=== PATIENT | male | born 1930 | race Caucasian/White ===

== ENCOUNTER → 2020-01-01 | Outpatient (CLI) | payer MEDICARE, BC ==
--- NOTE | 2020-01-01 12:17 | US ---
EXAMINATION TYPE: US abdomen complete DATE OF EXAM: 01/01/2020 COMPARISON: 02/28/2015 CLINICAL HISTORY: R94.5 abnormal liver function test. elevated liver enzymes EXAM MEASUREMENTS: Liver Length: 17.4 cm Gallbladder Wall: 0.2 cm CBD: 0.4 cm Spleen: 9.9 cm Right Kidney: 10.2 x 4.6 x 4.9 cm Left Kidney: 10.0 x 5.1 x 5.2 cm *Technical limitations due to overlying bowel content Pancreas: visualized portions appear wnl Liver: hyperechoic areas noted, largest = 1.6 x 1.6 x 1.8cm Gallbladder: possible polyp posterior wall = 0.2cm Evidence for sonographic Leslie's sign: no CBD: limited evaluation Spleen: appears wnl Right Kidney: no evidence of hydronephrosis Left Kidney: hypoechoic area lateral/lower pole = 2.3 x 2.5 x 2.3cm Upper IVC: wnl Abd Aorta: calcifications noted The liver is homogenous. The intrahepatic portion of the IVC and proximal abdominal aorta are within normal limits. There is no evidence of cholelithiasis. Common bile duct is unremarkable. The visu alized portions of the pancreas are homogenous. The spleen is unremarkable. Kidneys are symmetric a nd free of hydronephrosis. IMPRESSION: 1. Hyperechoic hepatic lesions may reflect. 2. Solid mass left kidney has been present since 02/28/2015 CAT scan.
== END | disposition home or self-care (01) ==
LOC: RADUSWWP 10:56
PROVIDERS: ATTEND Family Medicine
DX: N28.89 Other specified disorders of kidney and ureter (principal)
CPT/HCPCS: 76700

== ENCOUNTER 2020-01-22 08:23 | Inpatient (IN) | payer MEDICARE, BC ==
[2020-01-22] MEDS ORDERED: DIPH,PERTUS(ACELL)TETVAC-LF 0.5 ML VIAL IM ONE (08:33)
--- NOTE | 2020-01-22 08:39 | ED ---
General Adult HPI - General Stated complaint: fall, lt chestwall pain Time Seen by Provider: 01/22/20 08:26 Source: patient, EMS, RN notes reviewed Mode of arrival: EMS Limitations: no limitations - History of Present Illness Initial comments: This is an 89-year-old male presents emergency department via EMS chief complaint of a fall. Patient had a fall yesterday in which EMS did do a lift assist on the patient. Patient states that he's been getting around at this hospital states that he's had increasing pain family states that he's had increase in work of breathing. Patient states she's had generalized weakness, denies feeling well.. Patient states it hurts twist and take a deep breath. He does not feel short of breath and no head injury no loss conscious. Patient is not taking blood there is no abdominal pain no dysuria no hematuria. Patient states the pain is. Mild at this point is markedly increased with any palpation over the left side of the ribs. Patient also noted to have a skin tear to the right arm which was wrapped yesterday he is unsure when his last tetanus was. No reported fever. - Related Data Home Medications Medication Instructions Recorded Confirmed Enalapril [Vasotec] 20 mg PO BID 10/27/13 01/22/20 amLODIPine [Norvasc] 5 mg PO DAILY 02/25/15 01/22/20 Metoprolol Succinate (ER) [Toprol 25 mg PO DAILY 01/22/20 01/22/20 Xl] Timolol 0.5% Ophth Soln [Timoptic 1 drop BOTH EYES DAILY 01/22/20 01/22/20 0.5% Ophth Soln] Allergies Allergy/AdvReac Type Severity Reaction Status Date / Time amoxicillin Allergy Diarrhea Verified 01/22/20 10:42 Review of Systems ROS Statement: Those systems with pertinent positive or pertinent negative responses have been documented in the HPI. ROS Other: All systems not noted in ROS Statement are negative. Past Medical History Past Medical History: Hypertension History of Any Multi-Drug Resistant Organisms: None Reported Past Surgical History: No Surgical Hx Reported Past Psychological History: No Psychological Hx Reported Smoking Status: Current some day smoker Past Alcohol Use History: Occasional Past Drug Use History: None Reported General Exam Limitations: no limitations General appearance: alert, in no apparent distress Head exam: Present: atraumatic, normocephalic, normal inspection Eye exam: Present: normal appearance, PERRL, EOMI. Absent: scleral icterus, conjunctival injection, periorbital swelling ENT exam: Present: normal exam, normal oropharynx, mucous membranes moist Neck exam: Present: normal inspection, full ROM. Absent: tenderness, meningismus, lymphadenopathy Respiratory exam: Present: normal lung sounds bilaterally, chest wall tenderness (Moderate left-sided). Absent: respiratory distress, wheezes, rales, rhonchi, stridor Cardiovascular Exam: Present: regular rate, normal rhythm, normal heart sounds. Absent: systolic murmur, diastolic murmur, rubs, gallop, clicks GI/Abdominal exam: Present: soft, normal bowel sounds. Absent: distended, tenderness, guarding, rebound, rigid Extremities exam: Present: full ROM, normal capillary refill. Absent: normal inspection (Skin tear noted to the right forearm no active bleeding no tenderness), tenderness, pedal edema, joint swelling, calf tenderness Back exam: Present: full ROM. Absent: tenderness Neurological exam: Present: alert, oriented X3, reflexes normal. Absent: motor sensory deficit Skin exam: Present: warm, dry, intact, normal color. Absent: rash Course Vital Signs 01/22/20 01/22/20 01/22/20 08:26 10:33 11:00 Temperature 98 F 98.1 F Pulse Rate 100 90 88 Respiratory 18 18 18 Rate Blood Pressure 144/63 125/64 125/64 O2 Sat by Pulse 97 98 100 Oximetry 01/22/20 01/22/20 11:26 12:36 Temperature 98.0 F Pulse Rate 98 92 Respiratory 20 20 Rate Blood Pressure 130/64 144/61 O2 Sat by Pulse 97 95 Oximetry Medical Decision Making - Medical Decision Making 89-year-old male presented for fall, rib pain and difficulty breathing. Patient's x-ray showed concerns for possible colic, pneumonia. I work was ordered shows elevation of LDH, CRP, d-dimer concerns for chronic virus though rapid chronic versus is negative. Patient CT shows evidence of multifocal sclerotic disease concerning for metastatic cancer. Patient has no known history. Patient has lateral 67th rib fracture. No pneumothorax no definite PE. Patient will be admitted for medical evaluation and treatment for concerning cancer. Patient has not been admitted for repeat fracture though will consult pulmonary and anesthesia service for possible rib block - Lab Data Result diagrams: 01/22/20 10:54 01/22/20 10:54 Lab Results 01/22/20 01/22/20 01/22/20 Range/Units 10:54 10:54 10:54 WBC 15.8 H (3.8-10.6) k/uL RBC 4.08 L (4.30-5.90) m/uL Hgb 10.7 L (13.0-17.5) gm/dL Hct 33.6 L (39.0-53.0) % MCV 82.4 D (80.0-100.0) fL MCH 26.1 (25.0-35.0) pg MCHC 31.7 (31.0-37.0) g/dL RDW 18.8 H (11.5-15.5) % Plt Count 392 (150-450) k/uL MPV 6.8 Neutrophils % 83 % Lymphocytes % 7 % Monocytes % 6 % Eosinophils % 0 % Basophils % 0 % Neutrophils # 13.1 H (1.3-7.7) k/uL Lymphocytes # 1.1 (1.0-4.8) k/uL Monocytes # 1.0 (0-1.0) k/uL Eosinophils # 0.0 (0-0.7) k/uL Basophils # 0.0 (0-0.2) k/uL Anisocytosis Slight Microcytosis Slight PT 13.7 H (9.0-12.0) sec INR 1.4 H (<1.2) APTT 26.5 (22.0-30.0) sec D-Dimer 28.43 H (<0.60) mg/L FEU Sodium 130 L (137-145) mmol/L Potassium 4.1 (3.5-5.1) mmol/L Chloride 101 (98-107) mmol/L Carbon Dioxide 24 (22-30) mmol/L Anion Gap 5 mmol/L BUN 15 (9-20) mg/dL Creatinine 0.78 (0.66-1.25) mg/dL Est GFR (CKD-EPI)AfAm >90 (>60 ml/min/1.73 sqM) Est GFR (CKD-EPI)NonAf 81 (>60 ml/min/1.73 sqM) Glucose 149 H (74-99) mg/dL Plasma Lactic Acid Raj (0.7-2.0) mmol/L Calcium 7.7 L (8.4-10.2) mg/dL Magnesium 1.9 (1.6-2.3) mg/dL Total Bilirubin 0.8 (0.2-1.3) mg/dL AST 203 H (17-59) U/L ALT 49 (4-49) U/L Alkaline Phosphatase 1623 H (38-126) U/L Lactate Dehydrogenase 2088 H (313-618) U/L Troponin I (0.000-0.034) ng/mL C-Reactive Protein 209.1 H (<10.0) mg/L NT-Pro-B Natriuret Pep pg/mL Total Protein 5.3 L (6.3-8.2) g/dL Albumin 2.5 L (3.5-5.0) g/dL Coronavirus (PCR) (Not Detectd) 01/22/20 01/22/20 01/22/20 Range/Units 10:54 10:54 10:54 WBC (3.8-10.6) k/uL RBC (4.30-5.90) m/uL Hgb (13.0-17.5) gm/dL Hct (39.0-53.0) % MCV (80.0-100.0) fL MCH (25.0-35.0) pg MCHC (31.0-37.0) g/dL RDW (11.5-15.5) % Plt Count (150-450) k/uL MPV Neutrophils % % Lymphocytes % % Monocytes % % Eosinophils % % Basophils % % Neutrophils # (1.3-7.7) k/uL Lymphocytes # (1.0-4.8) k/uL Monocytes # (0-1.0) k/uL Eosinophils # (0-0.7) k/uL Basophils # (0-0.2) k/uL Anisocytosis Microcytosis PT (9.0-12.0) sec INR (<1.2) APTT (22.0-30.0) sec D-Dimer (<0.60) mg/L FEU Sodium (137-145) mmol/L Potassium (3.5-5.1) mmol/L Chloride (98-107) mmol/L Carbon Dioxide (22-30) mmol/L Anion Gap mmol/L BUN (9-20) mg/dL Creatinine (0.66-1.25) mg/dL Est GFR (CKD-EPI)AfAm (>60 ml/min/1.73 sqM) Est GFR (CKD-EPI)NonAf (>60 ml/min/1.73 sqM) Glucose (74-99) mg/dL Plasma Lactic Acid Raj 1.4 (0.7-2.0) mmol/L Calcium (8.4-10.2) mg/dL Magnesium (1.6-2.3) mg/dL Total Bilirubin (0.2-1.3) mg/dL AST (17-59) U/L ALT (4-49) U/L Alkaline Phosphatase (38-126) U/L Lactate Dehydrogenase (313-618) U/L Troponin I 0.012 (0.000-0.034) ng/mL C-Reactive Protein (<10.0) mg/L NT-Pro-B Natriuret Pep pg/mL Total Protein (6.3-8.2) g/dL Albumin (3.5-5.0) g/dL Coronavirus (PCR) Not Detected (Not Detectd) 01/22/20 Range/Units 10:54 WBC (3.8-10.6) k/uL RBC (4.30-5.90) m/uL Hgb (13.0-17.5) gm/dL Hct (39.0-53.0) % MCV (80.0-100.0) fL MCH (25.0-35.0) pg MCHC (31.0-37.0) g/dL RDW (11.5-15.5) % Plt Count (150-450) k/uL MPV Neutrophils % % Lymphocytes % % Monocytes % % Eosinophils % % Basophils % % Neutrophils # (1.3-7.7) k/uL Lymphocytes # (1.0-4.8) k/uL Monocytes # (0-1.0) k/uL Eosinophils # (0-0.7) k/uL Basophils # (0-0.2) k/uL Anisocytosis Microcytosis PT (9.0-12.0) sec INR (<1.2) APTT (22.0-30.0) sec D-Dimer (<0.60) mg/L FEU Sodium (137-145) mmol/L Potassium (3.5-5.1) mmol/L Chloride (98-107) mmol/L Carbon Dioxide (22-30) mmol/L Anion Gap mmol/L BUN (9-20) mg/dL Creatinine (0.66-1.25) mg/dL Est GFR (CKD-EPI)AfAm (>60 ml/min/1.73 sqM) Est GFR (CKD-EPI)NonAf (>60 ml/min/1.73 sqM) Glucose (74-99) mg/dL Plasma Lactic Acid Raj (0.7-2.0) mmol/L Calcium (8.4-10.2) mg/dL Magnesium (1.6-2.3) mg/dL Total Bilirubin (0.2-1.3) mg/dL AST (17-59) U/L ALT (4-49) U/L Alkaline Phosphatase (38-126) U/L Lactate Dehydrogenase (313-618) U/L Troponin I (0.000-0.034) ng/mL C-Reactive Protein (<10.0) mg/L NT-Pro-B Natriuret Pep 1420 pg/mL Total Protein (6.3-8.2) g/dL Albumin (3.5-5.0) g/dL Coronavirus (PCR) (Not Detectd) Disposition Clinical Impression: Fall, Fracture of rib of left side, Metastatic neoplastic disease, Dyspnea, Weakness, Skin tear Disposition: ADMITTED IP TO THIS [facility] Condition: Serious Referrals: Win Garner DO [Primary Care Provider] - 1-2 days Time of Disposition: 13:12
--- NOTE | 2020-01-22 10:38 | XR ---
EXAMINATION TYPE: XR ribs LT w pa chest xray DATE OF EXAM: 01/22/2020 CLINICAL HISTORY: Fall with left-sided pain TECHNIQUE: Single frontal view of the chest is obtained. Frontal and oblique images the left-sided ri bs. COMPARISON: None FINDINGS: The osseous structures are demineralized. Moderate to advanced degenerative change right gl enohumeral joint. Cardiac silhouette size upper limits of normal with atherosclerotic change aortic k nob. Background chronic parenchymal changes bilaterally with areas of increased opacity difficult to exclude without prior comparison. Small to tiny bilateral pleural effusions are suspected. Dedicated images of left-sided ribs show no acute displaced fractures. IMPRESSION: 1. No acute displaced left-sided rib fractures. 2. Chronic parenchymal changes with tiny bilateral pleural effusions, faint areas of acute infiltrate difficult to exclude without prior comparison in both lungs. Correlate clinically to exclude covid 1 9 infection.
[2020-01-22 11:25] LABS: Anisocytosis Slight; Basophils % (A) 0 %; Eosinophils % (A) 0 %; HCT 33.6 % (39.0-53.0); HGB 10.7 gm/dL (13.0-17.5); Lymphocytes # (A) 1.1 k/uL (1.0-4.8); Lymphocytes % (A) 7 %; MCH 26.1 pg (25.0-35.0); MCHC 31.7 g/dL (31.0-37.0); Mean Platelet Volume 6.8; Microcytosis Slight; Monocytes % (A) 6 %; Neutrophils # (A) 13.1 k/uL (1.3-7.7); Neutrophils % (A) 83 %; Platelet Count 392 k/uL (150-450); RBC 4.08 m/uL (4.30-5.90); RDW 18.8 % (11.5-15.5); WBC 15.8 k/uL (3.8-10.6)
[2020-01-22 11:32] LABS: MCV 82.4 fL (80.0-100.0)
[2020-01-22 11:49] LABS: ALT 49 U/L (4-49); AST 203 U/L (17-59); African American GFR (CKD) >90 (>60 ml/min/1.73 sqM); Albumin 2.5 g/dL (3.5-5.0); Anion Gap 5 mmol/L; Blood Urea Nitrogen 15 mg/dL (9-20); Calcium 7.7 mg/dL (8.4-10.2); Carbon Dioxide 24 mmol/L (22-30); Chloride 101 mmol/L (98-107); Glucose 149 mg/dL (74-99); LDH 2088 U/L (313-618); Magnesium 1.9 mg/dL (1.6-2.3); Non-African American GFR(CKD) 81 (>60 ml/min/1.73 sqM); Potassium 4.1 mmol/L (3.5-5.1); Sodium 130 mmol/L (137-145); Total Bilirubin 0.8 mg/dL (0.2-1.3); Total Protein 5.3 g/dL (6.3-8.2)
[2020-01-22 11:51] LABS: INR 1.4 (<1.2); Partial Thromboplastin Time 26.5 sec (22.0-30.0); Prothrombin Time 13.7 sec (9.0-12.0)
[2020-01-22 11:55] LABS: D-Dimer 28.43 mg/L FEU (<0.60)
[2020-01-22 12:02] LABS: Alkaline Phosphatase 1623 U/L (38-126); C Reactive Protein 209.1 mg/L (<10.0)
--- NOTE | 2020-01-22 12:53 | CT ---
EXAMINATION TYPE: CT chest angio for PE DATE OF EXAM: 01/22/2020 COMPARISON: Chest and left-sided rib x-ray earlier today. HISTORY: Left chest wall pain after fall. CT DLP: 359.4 mGycm Automated exposure control for dose reduction was used. CONTRAST: CT Chest for pulmonary embolism performed with with IV Contrast, patient injected with 100 mL of Isov ue 370. FINDINGS: LUNGS: Exam suboptimal inspiration unable to hold breath. Background mild underlying emphysematous ch cindy in the lung apices is seen. There are small bilateral pleural effusions and associated compressi ve atelectasis. No additional suspicious areas of focal consolidation. No pneumothorax seen bilateral ly. MEDIASTINUM: There is suboptimal bolus with heterogeneity, there is no large central pulmonary emboli sm, cannot exclude partial occlusive lobar, segmental, or subsegmental pulmonary emboli. There are en larged pulmonary arteries consistent with underlying pulmonary artery hypertension noted. Adjacent th oracic aorta measures up to 3.5 cm in diameter. There are prominent borderline enlarged right hilar lymph nodes. Trace pericardial effusion is seen. No cardiomegaly. Moderate to severe three-vessel co ronary calcification which is noted marked with underlying coronary artery disease. OTHER: Underlying scoliosis. Loss of normal thoracic curvature with moderate multilevel spurring. Th ere is multifocal diffuse abnormal sclerosis of osseous structures including for reference sternal ma nubrium. Advanced degenerative change right glenohumeral joint. There is callus formation suspicious for subacute or healing lateral rib fractures involving lateral sixth rib image 108 and seventh rib a xial image 106. No acute left-sided rib fractures clearly seen. Entire anterolateral lower ribs not i ncluded. IMPRESSION: 1. Suboptimal study without large central pulmonary embolism. Cannot exclude partial occlusive lobar or segmental and subsegmental pulmonary emboli on this study. 2. Mild underlying emphysematous change. Small to tiny right greater than left bilateral pleural effu sions confirmed. Markedly enlarged pulmonary arteries consistent with underlying pulmonary hypertensi on noted. 3. Subacute or healing left lateral sixth and seventh rib fractures. Multifocal underlying osseous sc lerotic lesions consistent with osseous sclerotic metastatic disease. Clinical correlation advised. C onsider prostate primary.
[2020-01-22] MEDS ORDERED: HYDROcodone/APAP 5-325MG 1 EACH TAB PO PRN (13:13)
[2020-01-22] MEDS ORDERED: NALOXONE 0.4 MG/ML 1 ML VIAL IV PRN (13:13)
[2020-01-22] MEDS ORDERED: ACETAMINOPHEN TAB 325 MG TAB PO PRN (13:13)
[2020-01-22] MEDS: ASCORBIC ACID 500 MG TAB PO SCH (17:22)
[2020-01-22] MEDS: ZINC SULFATE 220 MG CAP PO SCH (17:22)
[2020-01-22] MEDS: CHOLECALCIFEROL 400 UNIT TAB PO SCH (17:23)
[2020-01-22] MEDS: lisinopriL 20 MG TAB PO SCH (21:23)
[2020-01-23] MEDS: METOPROLOL SUCCINATE (ER) 25 MG TAB.ER.24H PO SCH (09:17)
[2020-01-23] MEDS: ZINC SULFATE 220 MG CAP PO SCH (09:18)
[2020-01-23] MEDS: lisinopriL 20 MG TAB PO SCH ×2 (09:18→20:29)
[2020-01-23] MEDS: TIMOLOL 0.5% OPHTH DROPS 5 ML BTL BOTH EYES SCH (09:18)
[2020-01-23] MEDS: amLODIPine 5 MG TAB PO SCH (09:18)
[2020-01-23] MEDS: ASCORBIC ACID 500 MG TAB PO SCH (09:18)
--- NOTE | 2020-01-23 10:30 | P.CONS ---
History of Present Illness - Reason for Consult Consult date: 01/23/20 Concern for metastatic dz bone Requesting physician: Shamar Jacobs - History of Present Illness Mr. Trotter is a pleasant male patient who initially was seen in October [address] 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 Primary site was found on right forehead in September 2018, status post Mohrs procedure on 10/17/2018. Path did reveal vascular invasion and moderately differentiated squamous cell carcinoma. At time of initial consultation it was recommended Mr. Mueller be evaluated by Radiation Oncology as it was felt his risk of recurrence was high. Patient declined further intervention and adjuvant therapy at that time. He has not followed back with us since this time. He now presents to [facility] Emergency via EMS chief complaint of a fall. He admits to increase in difficulty of breathing. Overall he states he has had increased generalized weakness and just hasnt been feeling well lately. Pain over left rib cage, which CT revealed evidenced of subacute 6th/7th fracture. Additionally CTA identifies concern of slcerotic bone lesions consistent with picture of metastatic disease. Secondary to these finding we have been asked to further evaluate. Review of Systems All systems: negative Constitutional: Reports as per HPI Past Medical History Past Medical History: Hypertension History of Any Multi-Drug Resistant Organisms: None Reported Past Surgical History: No Surgical Hx Reported Past Anesthesia/Blood Transfusion Reactions: No Reported Reaction Past Psychological History: No Psychological Hx Reported Smoking Status: Current some day smoker Past Alcohol Use History: Occasional Past Drug Use History: None Reported Medications and Allergies Home Medications Medication Instructions Recorded Confirmed Type Enalapril [Vasotec] 20 mg PO BID 10/27/13 01/22/20 History amLODIPine [Norvasc] 5 mg PO DAILY 02/25/15 01/22/20 History Metoprolol Succinate (ER) [Toprol 25 mg PO DAILY 01/22/20 01/22/20 History Xl] Timolol 0.5% Ophth Soln [Timoptic 1 drop BOTH EYES DAILY 01/22/20 01/22/20 History 0.5% Ophth Soln] Allergies Allergy/AdvReac Type Severity Reaction Status Date / Time amoxicillin Allergy Diarrhea Verified 01/22/20 10:42 Physical Exam Vitals: Vital Signs Temp Pulse Pulse Pulse Resp BP BP 01/23/20 05:42 98.2 F 103 H 24 139/72 01/23/20 02:08 98.8 F 90 22 170/67 01/22/20 22:27 98.1 F 105 H 20 166/71 01/22/20 18:24 98.4 F 104 H 16 161/84 01/22/20 17:51 97.9 F 105 H 20 168/79 01/22/20 15:07 98.3 F 95 18 141/56 01/22/20 13:30 96 20 130/56 01/22/20 12:36 92 20 144/61 01/22/20 11:26 98.0 F 98 20 130/64 01/22/20 11:00 98.1 F 88 18 125/64 01/22/20 10:33 90 18 125/64 Pulse Ox 01/23/20 05:42 97 01/23/20 02:08 94 L 01/22/20 22:27 97 01/22/20 18:24 98 01/22/20 17:51 95 01/22/20 15:07 01/22/20 13:30 96 01/22/20 12:36 95 01/22/20 11:26 97 01/22/20 11:00 100 01/22/20 10:33 98 Intake and Output 01/22/20 01/23/20 01/23/20 22:59 06:59 14:59 Other: Voiding Method Toilet # Voids 2 Weight 83.915 kg - Constitutional General appearance: cooperative, no acute distress - EENT Eyes: EOMI ENT: hard of hearing, NA/AT, normal oropharynx - Neck Neck: normal ROM Results CBC & Chem 7: 01/23/20 10:36 01/22/20 10:54 Labs: Abnormal Lab Results - Last 24 Hours (Table) 01/22/20 01/22/20 01/22/20 Range/Units 10:54 10:54 10:54 WBC 15.8 H (3.8-10.6) k/uL RBC 4.08 L (4.30-5.90) m/uL Hgb 10.7 L (13.0-17.5) gm/dL Hct 33.6 L (39.0-53.0) % RDW 18.8 H (11.5-15.5) % Neutrophils # 13.1 H (1.3-7.7) k/uL PT 13.7 H (9.0-12.0) sec INR 1.4 H (<1.2) D-Dimer 28.43 H (<0.60) mg/L FEU Sodium 130 L (137-145) mmol/L Glucose 149 H (74-99) mg/dL Calcium 7.7 L (8.4-10.2) mg/dL AST 203 H (17-59) U/L Alkaline Phosphatase 1623 H (38-126) U/L Lactate Dehydrogenase 2088 H (313-618) U/L C-Reactive Protein 209.1 H (<10.0) mg/L Total Protein 5.3 L (6.3-8.2) g/dL Albumin 2.5 L (3.5-5.0) g/dL Chest x-ray: report reviewed CT scan - chest: report reviewed Assessment and Plan (1) History of squamous cell carcinoma of skin Narrative/Plan: - Initial Diagnosis in September 2018, status post Mohrs Procedure - There was evidence of vascular invasion at that time and radiation adjuvant treatment was recommended, although patient refused. - Now concern for a metastatic process, unknown if in relation to history of SCC as above or new. Further work-up ordered. Current Visit: Yes Status: Acute Code(s): Z85.828 - PERSONAL HISTORY OF OTHER MALIGNANT NEOPLASM OF SKIN SNOMED Code(s): 645101718 (2) Alkaline phosphatase elevation Narrative/Plan: Also with increased LDH, Patients COVID screen was negative although presenta tion of patient COVID should remain in differentials. - CT Abdomen and Pelvis has been ordered to further assess for metastatic disease. Current Visit: Yes Status: Acute Code(s): R74.8 - ABNORMAL LEVELS OF OTHER SERUM ENZYMES SNOMED Code(s): 728686009 (3) Normocytic anemia Narrative/Plan: - No evidence of history of anemia - Anemia work-up ordered to assess for other causes Current Visit: Yes Status: Acute Code(s): D64.9 - ANEMIA, UNSPECIFIED SNO MED Code(s): 422423517 (4) Fall Narrative/Plan: - Increased overall weakness "recently" Current Visit: Yes Status: Acute Code(s): W19.XXXA - UNSPECIFIED FALL, INIT IAL ENCOUNTER SNOMED Code(s): 0474345 (5) Fracture of rib of left side Narrative/Plan: - Likely secondary to recent fall Current Visit: Yes Status: Acute Code(s): S22.32XA - FRACTURE OF ONE RIB, LEFT SIDE, INIT FOR CLOS FX SNOMED Code(s): 63196534 (6) Hyponatremia Current Visit: Yes Status: Acute Code(s): E87.1 - HYPO-OSMOLALITY AND HYPONATREMIA SNOMED Code(s): 54124729 Plan: Await further imaging and work-up, if area of suspicious in soft tissue would prefer a re-biopsy of non-bone as this will allow for a more definitive diagnosis. Await full anemia work-up Treatment of Respiratory complaints per pulm and primary teams Thank you for allowing us to participate in the care of this patient, will follow Physician Attest: I have completed the full history and physical and agree with above dictation, dictated as a scribe.
[2020-01-23 10:59] LABS: Anisocytosis Slight; Basophils % (A) 0 %; Eosinophils % (A) 0 %; HCT 32.7 % (39.0-53.0); Hypochromasia Slight; Lymphocytes # (A) 0.8 k/uL (1.0-4.8); Lymphocytes % (A) 6 %; MCH 25.5 pg (25.0-35.0); MCHC 30.6 g/dL (31.0-37.0); MCV 83.3 fL (80.0-100.0); Mean Platelet Volume 7.5; Microcytosis Slight; Monocytes # (A) 0.8 k/uL (0-1.0); Monocytes % (A) 6 %; Neutrophils # (A) 11.4 k/uL (1.3-7.7); Neutrophils % (A) 85 %; Platelet Count 386 k/uL (150-450); RBC 3.92 m/uL (4.30-5.90); Reticulocyte % 2.3 % (0.5-2.0); WBC 13.5 k/uL (3.8-10.6)
[2020-01-23 11:20] LABS: ALT 39 U/L (4-49); AST 107 U/L (17-59); African American GFR (CKD) >90 (>60 ml/min/1.73 sqM); Albumin 2.4 g/dL (3.5-5.0); Albumin/Globulin Ratio 0.9; Alkaline Phosphatase 1067 U/L (38-126); Anion Gap 4 mmol/L; Blood Urea Nitrogen 23 mg/dL (9-20); Calcium 7.5 mg/dL (8.4-10.2); Carbon Dioxide 24 mmol/L (22-30); Chloride 104 mmol/L (98-107); Globulin 2.8 g/dL; Glucose 151 mg/dL (74-99); Non-African American GFR(CKD) 81 (>60 ml/min/1.73 sqM); Sodium 132 mmol/L (137-145); Total Bilirubin 0.9 mg/dL (0.2-1.3); Total Protein 5.2 g/dL (6.3-8.2)
[2020-01-23 11:24] LABS: Potassium 4.5 mmol/L (3.5-5.1)
[2020-01-23] MEDS: ENOXAPARIN 40 MG/0.4 ML SYRINGE SQ SCH (12:01)
[2020-01-23] MEDS: CHOLECALCIFEROL 400 UNIT TAB PO SCH (12:01)
[2020-01-23] MEDS: IOPAMIDOL CONTRAST (ORAL USE) VIAL PO PRN ×2 (12:30→13:06)
--- NOTE | 2020-01-23 13:20 | P.HPIM ---
History of Present Illness H&P Date: 01/23/20 Chief Complaint: Status post fall, increasing pain, dyspnea This is an 81-year-old gentleman with past medical history of hypertension ongoing nicotine dependence, vascular invasive squamous cell CA diagnosed in 2019, and multiple other medical issues presented to the ER status post fall with complaints of increasing weakness, pain and shortness of breath. Left rib cage pain. CT reporting possible partial occlusive lobar or segmental and subsegmental pulmonary emboli without large central pulmonary embolism, small bilateral pleural effusions, enlarged pulmonary arteries-pulmonary hypertension, prominent borderline enlarged right hilar lymph nodes, moderate to severe 3 vessel coronary calcification with underlying CAD , underlying scoliosis ,subacute or healing left lateral sixth and seventh rib fractures, multifocal underlying osseous sclerotic lesions consistent with metastatic disease. Hypertensive on admission. Initially maintained O2 sats in the high 90s on room air, currently maintaining O2 sats in the 90s on 2 L nasal cannula. Afebrile, elevated WBC 15.8, 13.5, hemoglobin 10, platelets 386, INR 1.4. Sodium 132 BUN 23, creatinine 0.77 glucose 151 calcium 7.5T bili within normal limits, AST 203 on admission down to 107 alk phos 1623 down to 1067 LDH 2088, troponin negative 1, C reactive protein 209.1 BNP 1420. Coronavirus not detected. Past Medical History Past Medical History: Hypertension History of Any Multi-Drug Resistant Organisms: None Reported Past Surgical History: No Surgical Hx Reported Past Anesthesia/Blood Transfusion Reactions: No Reported Reaction Past Psychological History: No Psychological Hx Reported Smoking Status: Current some day smoker Past Alcohol Use History: Occasional Past Drug Use History: None Reported Medications and Allergies Home Medications Medication Instructions Recorded Confirmed Type Enalapril [Vasotec] 20 mg PO BID 10/27/13 01/22/20 History amLODIPine [Norvasc] 5 mg PO DAILY 02/25/15 01/22/20 History Metoprolol Succinate (ER) [Toprol 25 mg PO DAILY 01/22/20 01/22/20 History Xl] Timolol 0.5% Ophth Soln [Timoptic 1 drop BOTH EYES DAILY 01/22/20 01/22/20 History 0.5% Ophth Soln] Allergies Allergy/AdvReac Type Severity Reaction Status Date / Time amoxicillin Allergy Diarrhea Verified 01/22/20 10:42 Physical Exam Vitals: Vital Signs Temp Pulse Pulse Pulse Resp BP BP 12/02/20 10:00 98.1 F 96 16 134/71 01/23/20 05:42 98.2 F 103 H 24 139/72 01/23/20 02:08 98.8 F 90 22 170/67 01/22/20 22:27 98.1 F 105 H 20 166/71 01/22/20 18:24 98.4 F 104 H 16 161/84 01/22/20 17:51 97.9 F 105 H 20 168/79 01/22/20 15:07 98.3 F 95 18 141/56 01/22/20 13:30 96 20 130/56 01/22/20 12:36 92 20 144/61 01/22/20 11:26 98.0 F 98 20 130/64 Pulse Ox 01/23/20 10:00 100 01/23/20 05:42 97 01/23/20 02:08 94 L 01/22/20 22:27 97 01/22/20 18:24 98 01/22/20 17:51 95 01/22/20 15:07 01/22/20 13:30 96 01/22/20 12:36 95 01/22/20 11:26 97 Intake and Output 01/22/20 01/23/20 01/23/20 22:59 06:59 14:59 Other: Voiding Method Toilet Toilet # Voids 2 Weight 83.915 kg PHYSICAL EXAM: VITAL SIGNS: [As above] GENERAL: Sitting up in chair, unshaven ( not his baseline, usually well kept))hard of hearing, no acute distress HEENT: Conjunctivae normal. eyes normal. NECK: No JVD. No thyroid enlargement. No LNs CARDIOVASCULAR: S1, S2 regular.. No murmur RESPIRATION: Breath sounds diminished in the bases. No rhonchi or crackles. No bronchial breathing. Tender left rib cage. ABDOMEN: Soft, nontender . No guarding. no masses palpable. No ascites, No hepatosplenomegaly.Bowel sounds heard. LEGS: No edema. no swelling PSYCHIATRY: Alert and oriented X3, mood and affect normal. NERVOUS SYSTEM: Cranial N 2-12 grossly normal. Moves all 4 limbs. Diffuse weakness, No focal deficits. Strength and sensation grossly intact.. Skin: no lesions, no rash Results CBC & Chem 7: 01/23/20 10:36 01/23/20 10:36 Labs: Abnormal Lab Results - Last 24 Hours (Table) 01/22/20 01/22/20 01/22/20 Range/Units 10:54 10:54 10:54 WBC 15.8 H (3.8-10.6) k/uL RBC 4.08 L (4.30-5.90) m/uL Hgb 10.7 L (13.0-17.5) gm/dL Hct 33.6 L (39.0-53.0) % MCHC (31.0-37.0) g/dL RDW 18.8 H (11.5-15.5) % Neutrophils # 13.1 H (1.3-7.7) k/uL Lymphocytes # (1.0-4.8) k/uL Retic Count (0.5-2.0) % PT 13.7 H (9.0-12.0) sec INR 1.4 H (<1.2) D-Dimer 28.43 H (<0.60) mg/L FEU Sodium 130 L (137-145) mmol/L Glucose 149 H (74-99) mg/dL Calcium 7.7 L (8.4-10.2) mg/dL AST 203 H (17-59) U/L Alkaline Phosphatase 1623 H (38-126) U/L Lactate Dehydrogenase 2088 H (313-618) U/L C-Reactive Protein 209.1 H (<10.0) mg/L Total Protein 5.3 L (6.3-8.2) g/dL Albumin 2.5 L (3.5-5.0) g/dL 01/23/20 Range/Units 10:36 WBC 13.5 H (3.8-10.6) k/uL RBC 3.92 L (4.30-5.90) m/uL Hgb 10.0 L (13.0-17.5) gm/dL Hct 32.7 L (39.0-53.0) % MCHC 30.6 L (31.0-37.0) g/dL RDW 19.0 H (11.5-15.5) % Neutrophils # 11.4 H (1.3-7.7) k/uL Lymphocytes # 0.8 L (1.0-4.8) k/uL Retic Count 2.3 H (0.5-2.0) % PT (9.0-12.0) sec INR (<1.2) D-Dimer (<0.60) mg/L FEU Sodium (137-145) mmol/L Glucose (74-99) mg/dL Calcium (8.4-10.2) mg/dL AST (17-59) U/L Alkaline Phosphatase (38-126) U/L Lactate Dehydrogenase (313-618) U/L C-Reactive Protein (<10.0) mg/L Total Protein (6.3-8.2) g/dL Albumin (3.5-5.0) g/dL Thrombosis Risk Factor Assmnt - Choose All That Apply Any of the Below Risk Factors Present?: Yes Each Factor Represents 1 point: Obesity (BMI >25) Each Risk Factor Represents 3 Points: Age 75 years or older Thrombosis Risk Factor Assessment Total Risk Factor Score: 4 Thrombosis Risk Factor Assessment Level: Moderate Risk Assessment and Plan Assessment: Increasing generalized weakness, in a patient with history of vascular invasive squamous cell CA diagnosed in 2019. CTA suggestive of osseous sclerotic metastatic disease. Oncology following Status post fall secondary to the above Subacute left 6 and seventh rib fractures secondary to the above Acute hypoxic respiratory failure secondary to the above Elevated inflammatory markers though rapid reporting negative for Covid. Normocytic anemia Leukocytosis Elevated d-dimer, CTA reported possible partial occlusive lobar or segmental and subsegmental pulmonary emboli without large central pulmonary embolism Hyponatremia Elevated alk phos, improving Hypertension Ongoing nicotine dependence. Plan: Continue on current medication regime ,monitoring and symptomatic treatment. Home meds reviewed and resumed accordingly. GI and DVT prophylaxis in place. Pulmonary consult in place, recommendations pending. Oncology consulted. Prognosis guarded given multiple complex medical issues. The impression and plan of care has been dictated as directed. : I performed a history and examination of this patient, discussed the same with the dictator. I agree with the dictator's note ,documented as a scribe. Any additional findings or plans will be noted.
--- NOTE | 2020-01-23 14:44 | NM ---
EXAMINATION TYPE: NM bone scan whole body DATE OF EXAM: 01/23/2020 COMPARISON: CT scan 01/23/2020 HISTORY: Bone metastases Delayed whole-body scanning was performed following the injection of 25.9 mCi Tc 99m MDP. Images acq uired 3.25 hours post injection. FINDINGS: There is diffuse skeletal uptake throughout the rib cage, vertebral column, bilateral femora, pelvis, and multifocal uptake involving the calvarium. Findings are compatible with widespread bony metastas es. IMPRESSION: Diffuse widespread bony metastasis as discussed above.
--- NOTE | 2020-01-23 15:44 | CT ---
EXAMINATION TYPE: CT abdomen pelvis w con DATE OF EXAM: 01/23/2020 COMPARISON: 02/28/2015 HISTORY: 89-year-old male bone mets TECHNIQUE: Contiguous axial scanning of the abdomen and pelvis following administration of 100 ml Iso ana 300 IV contrast. There is scanner air noted by the technologist with 2 minute and [address] DLP: 1230.7 mGycm Automated exposure control for dose reduction was used. FINDINGS: Heart normal size without pericardial effusion. LAD and RCA coronary artery calcifications are presen t. Trace to small bilateral pleural effusions. Calcified granuloma at the medial right base. Acute to subacute fractures redemonstrated left lateral seventh, eighth, ninth ribs. Additional subac gisselle fracture right lateral sixth and seventh ribs. Diffuse osteosclerosis throughout. No focal liver lesion or biliary ductal dilatation. Portal venous system is patent. Gallbladder mildly hydropic measuring 4.6 cm wide without surrounding inflammation. Adrenal glands, spleen, mildly atrophic pancreas show no gross abnormality. Right kidney appears satisfactory. Mildly complex 3.1 cm cyst lateral left kidney shows some discontinuous peripheral calcification, pre viously having measured 2.7 cm 2016 without calcification but with a mildly thickened wall. The fact that this lesion was present back in 2016 suggests a benign etiology. Moderate prostatic calcifications throughout the abdominal aorta and iliac arteries. No dilated small bowel, free fluid, or free air. No mesenteric or retroperitoneal lymphadenopathy. Tiny fatty umbilical hernia. Left-sided colonic diverticulosis, extensive within the sigmoid colon. There is a 3.3 cm long segment of annular thickening and narrowing at the distal sigmoid, axial image 73 and sagittal image 60 whic h warrants direct visualization to exclude underlying neoplasm. Prominent stool ball is present withi n the sigmoid colon just proximally. Trabeculated bladder with a left-sided diverticulum measuring 2.4 cm. Prostate gland measures 4.4 cm. Mild presacral edema is nonspecific. No evident pelvic lymphadenopath y. Patulous right inguinal canal. Bones: Diffuse osteophytes and sclerosis throughout the visualized skeleton as mentioned above. IMPRESSION: 1. LEFT-SIDED COLONIC DIVERTICULOSIS, EXTENSIVE WITHIN THE SIGMOID COLON. THERE IS A 3.3 CM SEGMENT O F ANNULAR THICKENING AND NARROWING OF THE DISTAL SIGMOID. DIRECT VISUALIZATION TO EXCLUDE UNDERLYING NEOPLASM. 2. MARKEDLY TRABECULATED BLADDER WITH A 2.4 CM LEFT-SIDED LATERAL WALL DIVERTICULUM. FINDINGS MAY BE SEEN WITH CHRONIC BLADDER OUTLET OBSTRUCTION. 3. THE PROSTATE GLAND IS ONLY MILDLY ENLARGED AT 4.4 CM WIDE. GIVEN THE KNOWN DIFFUSE OSTEO-BLASTIC M ETASTASES, FURTHER CORRELATION WITH PSA, PROSTATE BIOPSY, AND POSSIBLE PROSTATE ULTRASOUND CAN BE CON SIDERED. 4. GALLBLADDER MILDLY HYDROPIC WITHOUT SURROUNDING INFLAMMATION, LIKELY DUE TO FASTING STATE. 5. PERSISTENT TRACE PLEURAL EFFUSIONS.
[2020-01-23] MEDS: PANTOPRAZOLE 40 MG/10 ML VIAL IVP SCH (17:26)
--- NOTE | 2020-01-23 19:25 | CONS ---
CONSULTATION PULMONARY CRITICAL CARE CONSULTATION: January 23, 2020. REASON FOR CONSULTATION: Chest wall injury status post fall, rib fracture. HISTORY OF PRESENT ILLNESS: This is an 89-year-old gentleman who is a very poor historian. He presented to the emergency department on 01/22/2020 at 8:23 am in the morning. He apparently was brought in by EMS because of a fall. Apparently he fell the day before. He came into the emergency room. In addition, the patient complains of pain and increased difficulty breathing. He had generalized weakness and just not feeling well. Again, very poor historian. He states he did not lose consciousness after falling and did not injure or have any trauma to his head area. The pain that he is experiencing is over the left chest area and left rib area. He also was noted to have a skin tear over the right arm. Anyway, after being evaluated in the emergency department, the patient was admitted to the hospital with a diagnosis of status post fall, rib fractures on the left side, metastatic cancer, weakness, and shortness of breath. CURRENT HOME MEDICATIONS: Include Vasotec, Norvasc, metoprolol, and eyedrops. ALLERGIES: AMOXICILLIN. PAST MEDICAL HISTORY: Hypertension. He also apparently has a history of squamous cell carcinoma initially found on his right forehead area. Apparently there is vascular invasion with this cancer. SURGICAL HISTORY: Apparently unremarkable. SOCIAL HISTORY: Positive for tobacco use. He drinks occasionally. No illicit drug use. There is no family or occupational history noted. ALLERGIES: ALLERGIES ARE AMOXICILLIN. REVIEW OF SYSTEMS: CONSTITUTIONAL weakness. NEUROLOGIC negative. HEENT negative. CARDIOVASCULAR: Left chest pain status post fall. PULMONARY: Shortness of breath. GI negative. negative. RHEUMATOLOGIC negative. IMMUNOLOGIC negative. ENDOCRINOLOGIC negative. DERMATOLOGIC negative. PHYSICAL EXAMINATION: VITAL SIGNS: Current vital signs include temperature 98.1. Heart rate 96, respiratory rate 16, blood pressure 134/71 mean 92, 2 L saturation 100%. Room air saturation 94%- 95%. GENERAL: Appears in no acute distress. There is no audible wheezing, use of accessory muscles or conversational dyspnea. HEENT: Examination is grossly unremarkable. NECK: Supple. Full range of motion. No adenopathy. Neck veins are flat. CARDIOVASCULAR: Examination reveals regular rhythm and rate. Heart rate at 90 beats per minute. S1, S2 normal. Heart sounds distant. No murmur. LUNGS: Reveal clear breath sounds. A few scattered mild crackles. Breath sounds equal bilaterally. No rhonchi. ABDOMEN: Soft. Bowel sounds are heard. EXTREMITIES are intact. No significant edema. No cyanosis or clubbing. SKIN: Without rash. NEUROLOGIC: Examination is difficult to assess. Appears to move all 4 extremities well. LAB DATA: Reviewed. White count 13.5, hemoglobin 10, hematocrit 32.7, platelet count 386,000. PT 13.7, INR 1.4, PTT is 26.5. D-dimer 28.43. Sodium 132, potassium 4.5, chloride 104. CO2 24. Anion gap is 4. BUN and creatinine were 23 and 0.77, glucose 151, calcium 7.5. AST, ALT were 107 and 39 respectively. LDH was 2088, alkaline phosphatase 1067. N-terminal proBNP 1420. Covid testing was negative. Microbiology is currently pending or negative. Chest x-ray along with rib series shows no acute displaced left-sided rib fractures. There is chronic parenchymal change with tiny bilateral pleural effusions. Faint areas of acute infiltrates are difficult to exclude. A CT angiogram showed no evidence of large central pulmonary emboli. There is mild underlying emphysematous changes, small right and left pleural effusions, and increased size pulmonary arteries consistent with pulmonary hypertension. There is also apparently healing left lateral 6th and 7th rib fractures. In addition, there is multifocal underlying osseous sclerotic lesions consistent with metastatic disease. Abdominal and pelvic CT was ordered but not read. Bone scan was ordered but not read. Note by Oncology is appreciated. Current medications are reviewed. He is currently on Tylenol, amlodipine, vitamin C, vitamin D3, Lovenox, [place], lisinopril, metoprolol, Narcan, Protonix, and zinc. He has also got eyedrops. ASSESSMENT: 1. Status post fall with left-sided chest trauma, but no acute rib fracture. 2. History of hypertension. 3. Vascular invasive squamous cell carcinoma, apparently beginning on the right side of the forehead. 4. Anemia. 5. No evidence of pulmonary emboli on CT angiogram. 6. Significantly elevated pro inflammatory markers, although a Covid testing was negative. 7. Very poor historian. PLAN: Will await a bone scan and the CT of the abdomen and pelvis. No additional recommendations are made. Saturations on room air 94 to 95%. On 2 L, she is 100%. No additional recommendations are made. Scans and x-rays, CT scan, are all reviewed. Additional recommendations and suggestions are forthcoming. MMODL / IJN: [id number] /
[2020-01-23 20:21] LABS: Protein, Total 4.8 g/dL (6.2-8.2)
[2020-01-24 01:45] LABS: % Iron Saturation 1.25 (15.00-50.00); Iron 3 ug/dL (65-175); Magnesium 2.1 mg/dL (1.5-2.4); Total Iron Binding Capacity 240 ug/dL (228-460)
[2020-01-24 02:37] LABS: Ferritin 1114.8 ng/mL (22.0-322.0); Folate, Serum 15.8 ng/mL
[2020-01-24 06:03] VITALS: RESP 18
[2020-01-24 07:23] LABS: Anisocytosis Slight; Basophils % (A) 0 %; Eosinophils % (A) 0 %; HCT 30.2 % (39.0-53.0); HGB 9.6 gm/dL (13.0-17.5); Hypochromasia Slight; Lymphocytes # (A) 1.2 k/uL (1.0-4.8); Lymphocytes % (A) 11 %; MCH 26.1 pg (25.0-35.0); MCHC 31.8 g/dL (31.0-37.0); MCV 82.2 fL (80.0-100.0); Mean Platelet Volume 6.9; Microcytosis Slight; Monocytes # (A) 0.8 k/uL (0-1.0); Monocytes % (A) 7 %; Neutrophils # (A) 8.8 k/uL (1.3-7.7); Neutrophils % (A) 78 %; Platelet Count 376 k/uL (150-450); RBC 3.68 m/uL (4.30-5.90); RDW 18.6 % (11.5-15.5); WBC 11.3 k/uL (3.8-10.6)
[2020-01-24] MEDS: PANTOPRAZOLE 40 MG/10 ML VIAL IVP SCH (07:58)
[2020-01-24] MEDS: ENOXAPARIN 40 MG/0.4 ML SYRINGE SQ SCH (07:59)
[2020-01-24] MEDS: METOPROLOL SUCCINATE (ER) 25 MG TAB.ER.24H PO SCH (08:00)
[2020-01-24] MEDS: ZINC SULFATE 220 MG CAP PO SCH (08:00)
[2020-01-24] MEDS: amLODIPine 5 MG TAB PO SCH (08:00)
[2020-01-24] MEDS: CHOLECALCIFEROL 400 UNIT TAB PO SCH (08:00)
[2020-01-24] MEDS: TIMOLOL 0.5% OPHTH DROPS 5 ML BTL BOTH EYES SCH (08:00)
[2020-01-24] MEDS: ASCORBIC ACID 500 MG TAB PO SCH (08:00)
[2020-01-24] MEDS: lisinopriL 20 MG TAB PO SCH (08:00)
[2020-01-24 09:06] LABS: Free Kappa Lt Chain Qnt, Serum 2.51 mg/dL (0.33-1.94)
[2020-01-24 10:12] VITALS: BP 131/66; PULSE 92; TEMP 97.8
--- NOTE | 2020-01-24 11:07 | P.PN ---
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 We are awaiting the return of his PSA, if this has increased, the liklihood of prostate cancer is increased, and if this is the metastatic picture treatment options that will increased quality and quantity of life do exist. Unfortunetly SCC is still in differential and if this is metastatic Squamous cell then hospice at this time is appropriate. If patient is open to options (even non-chemo) for metastatic prostate cancer if this is biopsy proven then to proceed with a biopsy is resonable. If he is not open to this, then further invasive diagnostics would not be needed and hospice involvement is appropriate. At this time we are aaiting the PSA and the patient and families decision on bone biopsy prior to moving forward. Objective - Vital Signs Vital signs: Vital Signs Temp 97.8 F 01/24/20 10:00 Pulse 92 01/24/20 10:00 Resp 18 01/24/20 10:00 BP 131/66 01/24/20 10:00 Pulse Ox 99 01/24/20 10:00 Intake & Output 01/23/20 01/24/20 01/24/20 18:59 06:59 18:59 Other: Voiding Method Toilet Toilet # Voids 5 0 # Bowel Movements 2 - Constitutional General appearance: Present: cooperative, no acute distress - EENT Eyes: Present: EOMI ENT: Present: hard of hearing, normal oropharynx - Respiratory Respiratory: bilateral: diminished - Cardiovascular Rhythm: regular Heart sounds: normal: S1, S2 - Gastrointestinal General gastrointestinal: Present: normal bowel sounds, soft - Neurologic Neurologic: Present: CNII-XII intact - Musculoskeletal Musculoskeletal: Present: generalized weakness - Psychiatric Psychiatric: Present: A&O x's 3, appropriate affect - Labs CBC & Chem 7: 01/24/20 06:33 01/23/20 10:36 Labs: Abnormal Lab Results - Last 24 Hours (Table) 01/23/20 01/23/20 01/23/20 Range/Units 10:36 10:36 10:36 WBC 13.5 H (3.8-10.6) k/uL RBC 3.92 L (4.30-5.90) m/uL Hgb 10.0 L (13.0-17.5) gm/dL Hct 32.7 L (39.0-53.0) % MCHC 30.6 L (31.0-37.0) g/dL RDW 19.0 H (11.5-15.5) % Neutrophils # 11.4 H (1.3-7.7) k/uL Lymphocytes # 0.8 L (1.0-4.8) k/uL Retic Count 2.3 H (0.5-2.0) % Haptoglobin 312.0 H (31.2-198.0) mg/dL Sodium 132 L (137-145) mmol/L BUN 23 H (9-20) mg/dL Glucose 151 H (74-99) mg/dL Calcium 7.5 L (8.4-10.2) mg/dL Iron 3 L (65-175) ug/dL % Saturation 1.25 L (15.00-50.00) Ferritin 1114.8 H (22.0-322.0) ng/mL AST 107 H (17-59) U/L Alkaline Phosphatase 1067 H (38-126) U/L Total Protein 5.2 L (6.3-8.2) g/dL Total Protein (PEP) 4.8 L (6.2-8.2) g/dL Albumin 2.4 L (3.5-5.0) g/dL Vitamin B12 959.0 H (200.0-944.0) pg/mL Free Winkelman LC, Quant 2.51 H (0.33-1.94) mg/dL Free Lambda LC, Quant 3.14 H (0.57-2.63) mg/dL 01/24/20 Range/Units 06:33 WBC 11.3 H (3.8-10.6) k/uL RBC 3.68 L (4.30-5.90) m/uL Hgb 9.6 L (13.0-17.5) gm/dL Hct 30.2 L (39.0-53.0) % MCHC (31.0-37.0) g/dL RDW 18.6 H (11.5-15.5) % Neutrophils # 8.8 H (1.3-7.7) k/uL Lymphocytes # (1.0-4.8) k/uL Retic Count (0.5-2.0) % Haptoglobin (31.2-198.0) mg/dL Sodium (137-145) mmol/L BUN (9-20) mg/dL Glucose (74-99) mg/dL Calcium (8.4-10.2) mg/dL Iron (65-175) ug/dL % Saturation (15.00-50.00) Ferritin (22.0-322.0) ng/mL AST (17-59) U/L Alkaline Phosphatase (38-126) U/L Total Protein (6.3-8.2) g/dL Total Protein (PEP) (6.2-8.2) g/dL Albumin (3.5-5.0) g/dL Vitamin B12 (200.0-944.0) pg/mL Free Winkelman LC, Quant (0.33-1.94) mg/dL Free Lambda LC, Quant (0.57-2.63) mg/dL Assessment and Plan (1) History of squamous cell carcinoma of skin Narrative/Plan: - Initial Diagnosis in September 2018, status post Mohrs Procedure - There was evidence of vascular invasion at that time and radiation adjuvant treatment was recommended, although patient refused. - Now concern for a metastatic process, unknown if in relation to history of SCC as above or new. Further work-up ordered. - If a diagnosis of metastatic SCC is determined overall prognosis is poor and hospice care would be appropriate Current Visit: Yes Status: Acute Code(s): Z85.828 - PERSONAL HISTORY OF OTHER MALIGNANT NEOPLASM OF SKIN SNOMED Code(s): 513416614 (2) Alkaline phosphatase elevation Narrative/Plan: Also with increased LDH, Patients COVID screen was negative although presentation of patient COVID should remain in differentials. - CT Abdomen and Pelvis did not show any evidence of disease in spoft tissue Bone Scan with evidence of diffuse uptake consistent with metastatic disease Current Visit: Yes Status: Acute Code(s): R74.8 - ABNORMAL LEVELS OF OTHER SERUM ENZYMES SNOMED Code(s): 575093226 (3) Normocytic anemia Narrative/Plan: - No evidence of history of anemia - Anemia work-up ordered to assess for other causes Current Visit: Yes Status: Acute Code(s): D64.9 - ANEMIA, UNSPECIFIED SNOMED Code(s): 259423575 (4) Fall Narrative/Plan: - Increased overall weakness "recently" Current Visit: Yes Status: Acute Code(s): W19.XXXA - UNSPECIFIED FALL, INITIAL ENCOUNTER SNOMED Code(s): 5268508 (5) Fracture of rib of left side Narrative/Plan: - Likely secondary to recent fall and pathological involvement Current Visit: Yes Status: Acute Code(s): S22.32XA - FRACTURE OF ONE RIB, LEFT SIDE, INIT FOR CLOS FX SNOMED Code(s): 59673435 (6) Hyponatremia Current Visit: Yes Status: Acute Code(s): E87.1 - HYPO-OSMOLALITY AND HYPONATREMIA SNOMED Code(s): 51003049 (7) Bone metastases Narrative/Plan: - Bone biopsy would be needed to further provide a definitive diagnosis. Again if a metastatic prostate cancer there are many options to continue with quality and quantity of life. - Awaiting patient and family decision on bone biopsy Current Visit: Yes Status: Acute Code(s): C79.51 - SECONDARY MALIGNANT NEOPLASM OF BONE SNOMED Code(s): 61763473 (8) Increasing prostate specific antigen level Narrative/Plan: - I have ordered a redraw of the PSA, last was 16 in February - There is evidence of mild increased Prostate at 4.4cm on CT - ALso family history as son with prostate, jewels 8, at age 49 Current Visit: Yes Status: Acute Code(s): R97.20 - ELEVATED PROSTATE SPECIFIC ANTIGEN [PSA] SNOMED Code(s): 478291840
[2020-01-24 12:07] LABS: African American GFR (CKD) 97.7 (60.0-200.0); Albumin 2.7 g/dL (3.80-4.90); Albumin/Globulin Ratio 1.5 (1.60-3.17); BUN/Creat Ratio 35.71 Ratio (12.00-20.00); Calcium 7.7 mg/dL (8.7-10.3); Globulin 1.8 g/dL (1.6-3.3); Magnesium 2.2 mg/dL (1.5-2.4); Non-African American GFR(CKD) 84.3 (60.0-200.0); Potassium 4.1 mmol/L (3.5-5.5); Total Bilirubin 0.6 mg/dL (0.3-1.2); Total Protein 4.5 g/dL (6.2-8.2)
[2020-01-24 12:35] LABS: Immunoglobulin M 55.9 mg/dL (40.0-280.0)
--- NOTE | 2020-01-24 13:51 | P.DS ---
Providers Date of admission: 01/22/20 13:28 Expected date of discharge: 01/24/20 Attending physician: Win Garner Consults: 01/22/20 13:13 Consult Physician Urgent Consulting Provider: Kolby Jefferson Consult Reason/Comments: Metastatic disease Do you want consulting provider notified?: Yes 01/22/20 13:30 Consult Physician Routine Consulting Provider: Ernesto De La Cruz Consult Reason/Comments: Dyspnea, rib fracture Do you want consulting provider notified?: Yes Consult to Anesthesia Routine Consulting Provider: Anesthesia,Services Consult Reason/Comments: Rib fracture Primary care physician: Win Garner [facility] Course: Increasing generalized weakness, in a patient with history of vascular invasive squamous cell CA diagnosed in 2019. 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 Oncology following Status post fall secondary to the above Subacute left lateral 6th,7th,8th,ninth rib fractures with additional subacute right lateral fractures 6th and 7th ribs, reported per CT ,secondary to the above Acute hypoxic respiratory failure secondary to the above No evidence of PE per pulmonary's review of CTA. Elevated inflammatory markers though rapid reporting negative for Covid. Normocytic anemia Leukocytosis Elevated d-dimer, CTA reported possible partial occlusive lobar or segmental and subsegmental pulmonary emboli without large central pulmonary embolism Hyponatremia Elevated alk phos, CT reports no focal liver lesions Hypertension Ongoing nicotine dependence. 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 Left rib cage pain. CT reporting possible partial occlusive lobar or segmental and subsegmental pulmonary emboli without large central pulmonary embolism, small bilateral pleural effusions, enlarged pulmonary arteries-pulmonary hypertension, prominent borderline enlarged right hilar lymph nodes, moderate to severe 3 vessel coronary calcification with underlying CAD , underlying scoliosi s ,subacute or healing left lateral sixth and seventh rib fractures, multifocal underlying osseous sclerotic lesions consistent with metastatic disease. Hypertensive on admission. Initially maintained O2 sats in the high 90s on room air, currently maintaining O2 sats in the 90s on 2 L nasal cannula. Afebrile, elevated WBC 15.8, 13.5, hemoglobin 10, platelets 386, INR 1.4. Sodium 132 BUN 23, creatinine 0.77 glucose 151 calcium 7.5T bili within normal limits, AST 203 on admission down to 107 alk phos 1623 down to 1067 LDH 2088, troponin negative 1, C reactive protein 209.1 BNP 1420. Coronavirus not detected. Dr. Garner discussed CT and bone scan results of bone mets, with patient and shortley thereafter with daughter via phone. Options offered-stated they can have whatever treatments they wanted as previously discussed with oncology,however there was not a cure for bone mets and hospice evaluation also recommended. Family requested patient be discharged home with hospice today. Pe r case management, family later called back in, insisting patient be discharged home today without hospice. They had talked with oncology, the patient as well as the family does not want to wait for PSA level to return. Patient will be discharged home today in a stable condition with guarded prognosis pending final DC recommendations and clearance from both pulmonary and oncology. Prognosis guarded given multiple complex medical issues. The impression and plan of care has been dictated as directed. : I performed a history and examination of this patient, discussed the same with the dictator. I agree with the dictator's note ,documented as a scribe. Any additional findings or plans will be noted. Patient Condition at Discharge: Stable Plan - Discharge Summary New Discharge Prescriptions: New Acetaminophen Tab [Tylenol] 650 mg PO Q6HR PRN tab PRN Reason: Mild Pain Or Fever > 100.5 Continue Enalapril [Vasotec] 20 mg PO BID amLODIPine [Norvasc] 5 mg PO DAILY Timolol 0.5% Ophth Soln [Timoptic 0.5% Ophth Soln] 1 drop BOTH EYES DAILY Metoprolol Succinate (ER) [Toprol XL] 25 mg PO DAILY Discharge Medication List Enalapril [Vasotec] 20 mg PO BID 10/27/13 [History] amLODIPine [Norvasc] 5 mg PO DAILY 02/25/15 [History] Metoprolol Succinate (ER) [Toprol XL] 25 mg PO DAILY 01/22/20 [History] Timolol 0.5% Ophth Soln [Timoptic 0.5% Ophth Soln] 1 drop BOTH EYES DAILY 01/22/20 [History] Acetaminophen Tab [Tylenol] 650 mg PO Q6HR PRN tab 01/24/20 [Rx] Follow up Appointment(s)/Referral(s): Win Garner DO [Primary Care Provider] - [facility] [NON-STAFF] - Activity/Diet/Wound Care/Special Instructions: O2 sat on room air after ambulation: Pending final DC recommendations, clearance from both oncology and pulmonary
[2020-01-24 14:58] LABS: Albumin 1.96 g/dL (3.80-4.90); Gamma Globulin 0.55 g/dL (0.70-1.50)
--- NOTE | 2020-01-24 15:23 | P.PN ---
Subjective Progress Note Date: 01/24/20 Principal diagnosis: Chest wall injury status post fall, rib fracture The patient is seen today 01/24/2020 in follow-up on the regular medical floor. He is currently resting in bed. He is awake. He has a very poor historian. He does deny any shortness of breath at this time. Rectal maintaining O2 saturations up to 100% on 2 L/m per nasal cannula. He is afebrile. Hemodyn amically stable. White count 11.3. Hemoglobin 9.6. Sodium 137. Potassium 4.1. Creatinine 0.7. Objective - Vital Signs Vital signs: Vital Signs Temp 97.8 F 01/24/20 10:00 Pulse 92 01/24/20 10:00 Resp 18 01/24/20 10:00 BP 131/66 01/24/20 10:00 Pulse Ox 99 01/24/20 10:00 Intake & Output 01/23/20 01/24/20 01/24/20 18:59 06:59 18:59 Other: Voiding Method Toilet Toilet # Voids 5 0 # Bowel Movements 2 - Exam GENERAL EXAM: Alert, frail, cachectic 89-year-old gentleman, appears comfortable in no apparent distress. HEAD: Normocephalic. EYES: Normal reaction of pupils, equal size. NOSE: Clear with pink turbinates. THROAT: No erythema or exudates. NECK: No masses, no JVD. CHEST: No chest wall deformity. LUNGS: Equal air entry with faint crackles in the posterior bases. CVS: S1 and S2 normal with no audible murmur, regular rhythm. ABDOMEN: No hepatosplenomegaly, normal bowel sounds, no guarding or rigidity. SPINE: No scoliosis or deformity SKIN: No rashes CENTRAL NERVOUS SYSTEM: No focal deficits, tone is normal in all 4 extremities. EXTREMITIES: There is no peripheral edema. No clubbing, no cyanosis. Peripheral pulses are intact. - Labs CBC & Chem 7: 01/24/20 06:33 01/24/20 06:33 Labs: Abnormal Lab Results - Last 24 Hours (Table) 01/23/20 01/23/20 01/23/20 Range/Units 10:36 10:36 10:36 WBC (3.8-10.6) k/uL RBC (4.30-5.90) m/uL Hgb (13.0-17.5) gm/dL Hct (39.0-53.0) % RDW (11.5-15.5) % Neutrophils # (1.3-7.7) k/uL Haptoglobin 312.0 H (31.2-198.0) mg/dL BUN/Creatinine Ratio (12.00-20.00) Ratio Glucose (70-110) mg/dL Calcium (8.7-10.3) mg/dL Iron 3 L (65-175) ug/dL % Saturation 1.25 L (15.00-50.00) Ferritin 1114.8 H (22.0-322.0) ng/mL AST (14-35) U/L Alkaline Phosphatase (41-126) U/L Total Protein (6.2-8.2) g/dL Total Protein (PEP) 4.8 L (6.2-8.2) g/dL Albumin (3.80-4.90) g/dL Albumin (PEP) 1.96 L (3.80-4.90) g/dL Albumin/Globulin Ratio (1.60-3.17) g/dL Qrpyu-1-Rplzmgjjd 0.54 H (0.10-0.40) g/dL Gamma Globulins 0.55 L (0.70-1.50) g/dL Vitamin B12 959.0 H (200.0-944.0) pg/mL IgG 646.0 L (700.0-1600.0) mg/dL IgA 368.0 H (60.0-350.0) mg/dL Free Dahlen LC, Quant 2.51 H (0.33-1.94) mg/dL Free Lambda LC, Quant 3.14 H (0.57-2.63) mg/dL 01/24/20 01/24/20 Range/Units 06:33 06:33 WBC 11.3 H (3.8-10.6) k/uL RBC 3.68 L (4.30-5.90) m/uL Hgb 9.6 L (13.0-17.5) gm/dL Hct 30.2 L (39.0-53.0) % RDW 18.6 H (11.5-15.5) % Neutrophils # 8.8 H (1.3-7.7) k/uL Haptoglobin (31.2-198.0) mg/dL BUN/Creatinine Ratio 35.71 H (12.00-20.00) Ratio Glucose 112 H (70-110) mg/dL Calcium 7.7 L (8.7-10.3) mg/dL Iron (65-175) ug/dL % Saturation (15.00-50.00) Ferritin (22.0-322.0) ng/mL AST 64 H (14-35) U/L Alkaline Phosphatase 1069 H (41-126) U/L Total Protein 4.5 L (6.2-8.2) g/dL Total Protein (PEP) (6.2-8.2) g/dL Albumin 2.70 L (3.80-4.90) g/dL Albumin (PEP) (3.80-4.90) g/dL Albumin/Globulin Ratio 1.50 L (1.60-3.17) g/dL Mlgbn-6-Ekjqooicg (0.10-0.40) g/dL Gamma Globulins (0.70-1.50) g/dL Vitamin B12 (200.0-944.0) pg/mL IgG (700.0-1600.0) mg/dL IgA (60.0-350.0) mg/dL Free Dahlen LC, Quant (0.33-1.94) mg/dL Free Lambda LC, Quant (0.57-2.63) mg/dL Assessment and Plan Assessment: 1 Trauma status post fall with left-sided chest, no acute rib fractures 2 History of hypertension 3 History of vascular invasive squamous cell carcinoma apparently began on the right side of the forehead 4 Anemia 5 Very poor historian 6 Poor overall functional status based on the above-mentioned multiple comorbidities Plan: The patient was seen and evaluated by Dr. De La Cruz Currently stable from the pulmonary standpoint We will follow as needed I, the cosigning physician, performed a history & physical examination of the patient. Lungs sounds with faint crackles in the posterior bases. Maintaining good O2 saturations in the 90s on 2 L/m per nasal cannula. I discussed the assessment and plan of care with my nurse practitioner, Nora Jones. I attest to the above note as dictated by her.
[2020-01-25] MEDS ORDERED: PANTOPRAZOLE 40 MG TABLET PO SCH (09:00)
--- NOTE | 2020-01-25 10:49 | P.PN ---
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, Pneumonia versus Covid Long discssions with patient and family and decided against biopsy and home with palliative care Objective - Vital Signs Vital signs: Vital Signs Temp 97.8 F 01/24/20 10:00 Pulse 92 01/24/20 10:00 Resp 18 01/24/20 10:00 BP 131/66 01/24/20 10:00 Pulse Ox 99 01/24/20 14:00 - Exam - Constitutional General appearance: Present: cooperative, no acute distress - EENT Eyes: Present: EOMI ENT: Present: hard of hearing, normal oropharynx - Respiratory Respiratory: bilateral: diminished - Cardiovascular Rhythm: regular Heart sounds: normal: S1, S2 - Gastrointestinal General gastrointestinal: Present: normal bowel sounds, soft - Neurologic Neurologic: Present: CNII-XII intact - Musculoskeletal Musculoskeletal: Present: generalized weakness - Psychiatric Psychiatric: Present: A&O x's 3, appropriate affect - Labs - Labs CBC & Chem 7: 01/24/20 06:33 01/24/20 06:33 Labs: Abnormal Lab Results - Last 24 Hours (Table) 01/23/20 01/23/20 01/24/20 Range/Units 10:36 10:36 06:33 BUN/Creatinine Ratio 35.71 H (12.00-20.00) Ratio Glucose 112 H (70-110) mg/dL Calcium 7.7 L (8.7-10.3) mg/dL AST 64 H (14-35) U/L Alkaline Phosphatase 1069 H (41-126) U/L Total Protein 4.5 L (6.2-8.2) g/dL Albumin 2.70 L (3.80-4.90) g/dL Albumin (PEP) 1.96 L (3.80-4.90) g/dL Albumin/Globulin Ratio 1.50 L (1.60-3.17) g/dL Ipolf-5-Dkmyrhsax 0.54 H (0.10-0.40) g/dL Gamma Globulins 0.55 L (0.70-1.50) g/dL IgG 646.0 L (700.0-1600.0) mg/dL IgA 368.0 H (60.0-350.0) mg/dL Assessment and Plan (1) History of squamous cell carcinoma of skin Narrative/Plan: - Initial Diagnosis in September 2018, status post Mohrs Procedure - There was evidence of vascular invasion at that time and radiation adjuvant treatment was recommended, although patient refused. - Now concern for a metastatic process, unknown if in relation to history of SCC as above or new. Further work-up ordered. - If a diagnosis of metastatic SCC is determined overall prognosis is poor and hospice care would be appropriate Status: Acute Code(s): Z85.828 - PERSONAL HISTORY OF OTHER MALIGNANT NEOPLASM OF SKIN SNOMED Code(s): 712876743 (2) Alkaline phosphatase elevation Narrative/Plan: Also with increased LDH, Patients COVID screen was negative although presentation of patient COVID should remain in differentials. - CT Abdomen and Pelvis did not show any evidence of disease in spoft tissue Bone Scan with evidence of diffuse uptake consistent with metastatic disease Status: Acute Code(s): R74.8 - ABNORMAL LEVELS OF OTHER SERUM ENZYMES SNOMED Code(s): 019513610 (3) Normocytic anemia Narrative/Plan: - No evidence of history of anemia - Anemia work-up ordered to assess for other causes Status: Acute Code(s): D64.9 - ANEMIA, UNSPECIFIED SNOMED Code(s): 200197495 (4) Fall Narrative/Plan: - Increased overall weakness "recently" Status: Acute Code(s): W19.XXXA - UNSPECIFIED FALL, INITIAL ENCOUNTER SNOMED Code(s): 5334584 (5) Fracture of rib of left side Narrative/Plan: - Likely secondary to recent fall and pathological involvement Status: Acute Code(s): S22.32XA - FRACTURE OF ONE RIB, LEFT SIDE, INIT FOR CLOS FX SNOMED Code(s): 94293252 (6) Hyponatremia Status: Acute Code(s): E87.1 - HYPO-OSMOLALITY AND HYPONATREMIA SNOMED Code(s): 67372181 (7) Bone metastases Narrative/Plan: - Bone biopsy would be needed to further provide a definitive diagnosis. Again if a metastatic prostate cancer there are many options to continue with quality and quantity of life. - Awaiting patient and family decision on bone biopsy Status: Acute Code(s): C79.51 - SECONDARY MALIGNANT NEOPLASM OF BONE SNOMED Code(s): 63913220 (8) Increasing prostate specific antigen level Narrative/Plan: - I have ordered a redraw of the PSA, last was 16 in February - There is evidence of mild increased Prostate at 4.4cm on CT - ALso family history as son with prostate, jewels 8, at age 49 Status: Acute Code(s): R97.20 - ELEVATED PROSTATE SPECIFIC ANTIGEN [PSA] SNOMED Code(s): 882358502 Plan: Await further imaging and work-up, if area of suspicious in soft tissue would prefer a re-biopsy of non-bone as this will allow for a more definitive diagnosis. Await full anemia work-up Treatment of Respiratory complaints per pulm and primary teams No biopsy per patient wishes. Will be discharged home with palliative care Physician Attest: I have completed the full history and physical and agree with above dictation, dictated as a scribe.
== END 2020-01-24 15:20 | disposition home health service (06) | DRG 542 ==
LOC: EC 08:23 → 4SSUR 13:28
PROVIDERS: ADMIT Family Medicine; ATTEND Family Medicine
PROC: 3E0234Z Introduction of Serum, Toxoid and Vaccine into Muscle, Percutaneous Approach (ICD-10-PCS; principal; 2020-01-22)
DX: M84.58XA Pathological fracture in neoplastic disease, other specified site, initial encounter for fracture (principal); J96.01 Acute respiratory failure with hypoxia; C79.51 Secondary malignant neoplasm of bone; R64 Cachexia; E87.1 Hypo-osmolality and hyponatremia; K82.1 Hydrops of gallbladder; N13.8 Other obstructive and reflux uropathy; J84.10 Pulmonary fibrosis, unspecified; Z23 Encounter for immunization; Z20.828 Contact with and (suspected) exposure to other viral communicable diseases; S41.111A Laceration without foreign body of right upper arm, initial encounter; N40.1 Benign prostatic hyperplasia with lower urinary tract symptoms; I10 Essential (primary) hypertension; K57.30 Diverticulosis of large intestine without perforation or abscess without bleeding; N32.3 Diverticulum of bladder; D64.9 Anemia, unspecified; D72.829 Elevated white blood cell count, unspecified; I25.10 Atherosclerotic heart disease of native coronary artery without angina pectoris; Z85.828 Personal history of other malignant neoplasm of skin; N32.89 Other specified disorders of bladder; H91.90 Unspecified hearing loss, unspecified ear; R74.8 Abnormal levels of other serum enzymes; R97.20 Elevated prostate specific antigen [PSA]; R26.9 Unspecified abnormalities of gait and mobility; F17.200 Nicotine dependence, unspecified, uncomplicated; Z79.899 Other long term (current) drug therapy; W19.XXXA Unspecified fall, initial encounter; Z88.0 Allergy status to penicillin
CPT/HCPCS: 36415; 71275; 74177; 78306; 80053; 82607; 82728; 82746; 82784; 83010; 83540; 83550; 83605; 83615; 83625; 83735; 83880; 83883; 83921; 83970; 84153; 84165; 84484; 85025; 85045; 85379; 85610; 85730; 86140; 86334; 87635; 93005; 99285